=== PATIENT | male | born 1980 | race Caucasian/White ===

== ENCOUNTER 2020-06-22 22:07 | Emergency (ER) | payer SELFPAY ==
[~2020-06-22] VITALS: Ht 177.8 cm; Wt 90.0 kg
[2020-06-22 22:09] VITALS: BP 133/70
== END 2020-06-22 23:54 | disposition left against medical advice (07) ==
LOC: ER 22:07
DX: M54.9 Dorsalgia, unspecified (principal); Z53.21 Procedure and treatment not carried out due to patient leaving prior to being seen by health care provider